=== PATIENT | male | born 1960 | race Caucasian/White ===

== ENCOUNTER 2017-01-12 11:51 | Day surgery (SDC) | payer OTHER ==
[~2017-01-12] VITALS: Ht 188 cm; Wt 127.0 kg
[~2017-01-12 11:51] MED LIST: ASPI-973 PO; FLUT12AE4 IH; FURO-129 PO; HYDR25TA4 PO; INSU300I SQ; LISI30TA5 PO; LORA10CA PO; Lactated Ringer's 1,000 ML IV ONE; METF500T4 PO; MULT1CAP33 PO; OMEP20CA11 PO; SIMV40TA2 PO
[2017-01-12] MEDS ORDERED: Propofol 10,000 mCg/mL 20 mL Inj ONE (11:52)
[2017-01-12] MEDS ORDERED: fentaNYL-PF 50 mCg/mL 2 mL Inj ONE (11:52)
[2017-01-12 12:46] VITALS: BP 135/79; PULSE 79; RESP 16; O2SAT 97
--- NOTE | 2017-01-12 13:45 | PCM.ENDEGD ---
EGD Date of Service: Jan 12, 2017 Physician Malick Thomas MD Pre Procedure Diagnosis: Abnormal CT of the esophagus Post Procedure Dx & Findings: Esophagitis esophageal ulcer Schatzki's ring hiatal hernia nonobstructing and erosive gastritis Procedure Esophagogastroduodenoscopy PROCEDURE IN DETAIL: After proper sedation, Olympus video endoscope was inserted into patient's mouth and esophagus was successfully intubated. Scope introduced esophagus. Esophagus showed normal shiny whitish mucosa consistent with squamous cell component. Z line was at 40 cm from the incisors. There was nonobstructing Schatzki's ring with esophagitis esophageal ulcer. Multiple biopsies obtained at the esophagitis and esophageal ulcer and placed in the same bottle. There was a 5 cm hiatal hernia. Scope further advanced to the stomach. Stomach showed redness edema superficial erosions throughout the antrum and distal body of the stomach. Multiple biopsies obtained. Cardia fundus body antrum pylorus were all visualized. Retroflexion was done. Stomach was easily inflated and deflatable using air. Scope further advanced to the distal duodenum. Duodenum revealed normal villous structures with normal appearing folds without any mass ulcer erosion. Impression Esophagitis esophageal ulcer Schatzki's ring hiatal hernia nonobstructing and erosive gastritis Recommendation Stop all NSAIDs Nexium 40 mg once a day Presedation Assessment Risks and Benefits Informed consent was obtained from the patient after all risks and benefits including but not limited to drug reaction, infection, pain, bleeding, perforation, as well as alternatives were discussed. Patient monitoring Continuous pulse oximetry, cardiac monitoring, blood pressure monitoring, IV access, and oxygen at 2L per nasal cannula. Complications There were no periprocedural complications identified. Post Procedure Plan Post Procedure Recommendations 1. Restrict activities today. 2. Resume normal activities in the morning. 3. Resume medications. 4. GERD behavioral modification: - Avoid fatty, acidic, spicy, large meals - Do not lie down after meals - Do not eat or drink anything for at least 2 1/2 hours before going to bed at night - Discontinue tobacco and alcohol - Decrease or avoid caffeine - Avoid chocolate and mints - Decrease weight - Avoid aspirin and non steroidal anti-inflammatory agents (NSAID) such as Aleve, Advil, Mobic, Naproxen, Ibuprofen, etc 5. Add proton pump inhibitor. Take 30 minutes before 1st meal of the day. 6. Patient informed of normal post procedure side effects as bloating, drowsiness, blood streaking in the stool 7. If gastric biopsy reveal H.pylori, continue with appropriate treatment 8. If small bowel biopsy reveals celiac, continue with appropriate treatment 9. Please don't hesitate to call me with any questions Malick Thomas MD Jan 12, 2017 13:45
[2017-01-12 13:46] VITALS: BP 94/53; PULSE 80; RESP 20; O2SAT 96
[2017-01-12 13:50] VITALS: BP 113/62; PULSE 79; RESP 20; O2SAT 95
[2017-01-12 14:00] VITALS: BP 108/63; PULSE 77; RESP 16; O2SAT 97
--- NOTE | 2017-01-12 18:12 | PCM.HPANE ---
Patient Data Date of Service: Jan 12, 2017 (0700) Surgeon Admitting Provider: Attending Provider:Malick Thomas MD Primary Care Physician:Jason Chen Other Provider:Heriberto Ramirez Anesthesia Reason for Visit Abnormal Ct Of Abdomen Ht/WT & BMI Height (Feet): 6 Height (Inches): 2 Weight (Kilograms): 127.01 Body Mass Index 35.00 Allergies Coded Allergies: No Known Allergies (Verified Allergy, Unknown, 01/11/17) Past Anesthesia History Anesthesia History: Denies:: Abnormal Airway, Anesthesia Reactions, Difficult Intubation, Fam Anesthesia Reaction, Fam Malignant Hypertherm, Malignant Hyperthermia Diabetes History Hx Diabetes?: Yes Current Bedside Blood Glucose: 136 MRSA MRSA: No Medications Blood Thinner: Aspirin Last Dose Blood Thinner: Jan 11, 2017 Home Meds Incl Beta Imani: No Reported Medications Simvastatin (Zocor)40 Mg Qjghhp62 Mg PO HS 30 Days Ref 0 01/11/17 Insulin Glargine,Hum.rec.anlog (Toujeo Solostar)300 Unit/Ml (1.5 Ml) Insuln.pen80 Unit SQ DIRECTED 01/11/17 Multivitamin (Multivitamins)1 Each Capsule1 Each PO DAILY 01/11/17 Metformin 500 Mg Tablet2,000 Mg PO BID Ref 0 01/11/17 Lisinopril 30 Mg Xmmsyo81 Mg PO DAILY 30 Days Ref 0 01/11/17 Furosemide (Lasix)20 Mg Xixvro34 Mg PO DAILY 30 Days Ref 0 01/11/17 Hydrochlorothiazide 25 Mg Cacksl46 Mg PO DAILY 30 Days Ref 0 01/11/17 Loratadine (Claritin)10 Mg Yevmhsn87 Mg PO DAILY Ref 0 01/11/17 Aspirin 81 Mg Xvyqpm45 Mg PO DAILY Ref 0 01/11/17 Fluticasone/Salmeterol (Advair Hfa 115-21 Mcg Inhaler)12 Gm Hfa.aer.ad2 Puff IH BID #1 INHALER Ref 0 01/11/17 Discontinued Reported Medications Omeprazole 20 Mg Capsule.dr20 Mg PO DAILY Ref 0 01/11/17 History History of ENT Problems?: No HEENT History: Positive for:: Dysphagia (HARD SWALLOW SOMETIMES) Denies:: Abnormal Airway Difficult Intubation Hearing Problem Denture Type: None Teeth Condition: Within Normal Limits Hx of Heart Problems?: Yes Cardiovascular History: Positive for:: Hypertension Denies:: AICD Atrial Fibrillation Chest Pain Pacemaker Valvular Heart Disease Hx of Respiratory Problem?: Yes Respiratory History: Positive for:: Cough ( REFLUX RELATED) Denies:: Asthma COPD Hemoptysis Pneumonia Tuberculosis Hx Neurologic Problems?: No Neurological History: Denies:: CVA Hx of GI Problems?: Yes Hx of Problems?: No Hx Musculoskeletal Problems?: No Musculoskeletal History: Denies:: Fibromyalgia Joint Replacement Psycho Social History: Denies:: Anxiety Hx Depression Hx Surgeries?: No (COLONOSCOPY ONLY ) Hx Any Other Health Problems?: No Hx Diabetes: YesBedside Blood Glucose: 136 Hx Alcohol Use: Yes (RARELY) Stop/Bang Treated for Sleep Apnea?: Yes Do You Have a CPAP Machine?: Yes Risk Assessment Category Category 1A: Patient has history of documented sleep apnea, and HAS NOT received any narcotic, sedative or anesthesia administration during this stay. Category 1B: Patient has history of documented sleep apnea, and HAS received any narcotic , sedative or anesthesia administration during this stay Category 2: Patient has SUSPECTED Obstructive Sleep Apnea, and HAS received any narcotic , sedative or anesthesia administration during this stay. Category 3: Patient has SUSPECTED Obstructive Sleep Apnea and HAS NOT received narcotic, sedative or anesthesia administration during this stay. Category 4: Outpatient in Procedural Areas with known sleep apnea or who screen positive for High Risk via the STOP/BANG questionnaire. Exam Exam Vital Signs Vital Signs Date Time Temp Pulse Resp B/P Pulse Ox O2 Delivery O2 Flow Rate FiO2 01/12/17 14:00 77 16 108/63 97 Room Air 01/12/17 13:50 79 20 113/62 95 Room Air 01/12/17 13:46 80 20 94/53 96 Room Air 01/12/17 12:46 35.9 79 16 135/79 97 Room Air General Appearance: Alert, Oriented X3, Cooperative, No Acute Distress HEENT/AIRWAY: MP 2 Lungs: Clear to Auscultation Heart: Exam Unremarkable Meds/Labs/Diagnostics Admission Meds Current Medications Lactated Ringer's (Lr) 1,000 ml @ 10 mls/hr Q24H ONCE IV Last administered on 01/12/17t 13:39; Start 01/12/17 at 06:00; Stop 01/13/17 at 05:59 Bedside Blood Glucose: 136 Plan Impression Patient chart reviewed, patient interviewed and anesthestic plan with risks, benefits, and alternatives discussed, and informed consent obtained. ASA Physical Status: ASA2 Mod Systemic Disease Anesthetic Plan: MAC Bene/Risks/Altern/Consents: Yes HP Complete Prior to Induction: Yes João Lewis MD Jan 12, 2017 18:12
--- NOTE | 2017-01-17 14:32 | PATH ---
SURGICAL PATHOLOGY Attending Physician:Malick Thomas M.D. CASE STATUS: Signed Out PATIENT NAME: FELIX ZHENG PID: [id number] : 1960 DATE COLLECTED:01/12/2017 00:00 SPECIMEN: 1: Gastric, Biopsy 2: Esophagus, Biopsy CLINICAL HISTORY: 1). GASTRIC BIOPSY (RULE OUT H.PYLORI) 2). DISTAL ESOPHAGUS BIOPSY FINAL DIAGNOSIS: 1.GASTRIC BIOPSY: PORTIONS OF GASTRIC ANTRAL AND BODY-TYPE MUCOSA WITH NO DIAGNOSTIC ABNORMALITY. No H. pylori organisms identified by H&E stain and immunohistochemistry studies. Negative for intestinal metaplasia, dysplasia and malignancy. 2.DISTAL ESOPHAGUS, BIOPSY: DETACHED PORTIONS OF SQUAMOUS MUCOSA WITH NO DIAGNOSTIC ABNORMALITY. DETACHED PORTION OF COLUMNAR MUCOSA WITH ONE FOCUS INDETERMINATE FOR INTESTINAL METAPLASIA. Alcian blue studies will be performed and reported as an addendum. Negative for dysplasia and malignancy. No intact junctional tissue identified for evaluation. ICD10 K29.7 NOTE: IMMUNOHISTOCHEMISTRY: Block 1A: H. pylori: Negative. * This test was developed and its performance characteristics determined by [employer]. It has not been cleared or approved by the [place]. Food and Drug Administration. The FDA has determined that such clearance or approval is not necessary. This test is used for clinical purposes. It should not be regarded as investigational or for research. GROSS DESCRIPTION: The specimen is received in two formalin filled containers labeled with the patient's name. 1). The specimen is labeled "gastric" and consists of 3 portions of tissue which aggregate to 0.3x 0.3 x 0.3 CM. The specimen is entirely submitted in cassette 1A. 2). The specimen is labeled "distal esophagus" and consists of 3 portions of tissue which aggregate to 0.3 x 0.3 x 0.2 CM. The specimen is entirely submitted in cassette 2A. 01/13/2017MT MICRO DESCRIPTION: See diagnosis. ICD-9 CODES: CPT CODES: 1: 48546, 71961 2: 08807 Electronically Signed Out Ashleigh Bragg MD [facility] Pathology [facility] [address], [place] [address] Technical component performed at [facility], [facility] [address], [place], [address]
== END 2017-01-12 23:59 | disposition home or self-care (01) ==
LOC: END 11:51
PROVIDERS: ATTEND Internal Medicine
DX: K22.10 Ulcer of esophagus without bleeding (principal); K22.2 Esophageal obstruction; K44.9 Diaphragmatic hernia without obstruction or gangrene; K29.51 Unspecified chronic gastritis with bleeding; F45.8 Other somatoform disorders
CPT/HCPCS: 43239; J3010; J7120